=== PATIENT | female | born 1960 | race Caucasian/White ===

== ENCOUNTER → 2017-01-17 | Outpatient (CLI) | payer BC ==
[~2017-01-17] MED LIST: AMLODIPINE BESYL5 MG PO; ARIMIDEX1 MG PO; CALTRATE 600+D PO; DESYREL50 MG; EFFEXOR37.5 MG PO; NICOTINE1 EAC2; ZORVOLEX18 MG PO
--- NOTE | ~2017-01-17 | CR63 ---
[facility] A Service of [facility] RADIOLOGY TEXT RESULTS PATIENT: MARJORIE LOPEZ LOCATION: [facility] : 58 UNIT #: [id number] AGE: [address]: Anne Vargas APRN SEX: F ORDER DR: [id number] [facility] [address] [place], [place] [address] [id number] O MR#: [id number] Acc #: [id number] NAME: MARJORIE LOPEZ : 1960 SEX: F STUDY DATE/TIME: 01/17/2017 8:04 UNIT: [facility] ROOM: STUDY DESCRIPTION: CR Chest 2 View Attending Physician: Anne Vargas A.P.R.N. Referring Physician: Anne Vargas A.P.R.N. Ordering Physician: David Smith M.D. Primary Care Physician: David Smith M.D. MEDICAL IMAGING REPORT This report is preliminary unless electronic signature is present EXAM Chest PA and lateral 01/17/2017 HISTORY Persistent cough for 1.5 months with shortness of breath. Left breast carcinoma and lumpectomy. FINDINGS PA and lateral examination of the chest upright shows a good expansion of the parenchyma with a normal distribution of the pulmonary vascularity. There is no indication of congestion, effusion, infiltrate, tumor, or nodular density. The pleural reflections and diaphragmatic contours are normal. The cardiac silhouette and mediastinal anatomy is within normal limits. IMPRESSION Normal chest. Dictated by... Gustavo Veloz M.D. THIS IS AN ELECTRONICALLY VERIFIED REPORT Gustavo Veloz M.D. at 01/18/2017 8:13 AM JESSICA/diane TD: 01/17/2017 10:26 JOB #: [id number] MEDICAL IMAGING REPORT Page 1 of 1 COPY
== END | disposition home or self-care (01) ==
LOC: CRAD 07:37
DX: R05 Cough (principal); Z80.1 Family history of malignant neoplasm of trachea, bronchus and lung
CPT/HCPCS: 71020